=== PATIENT | male | born 1970 | race Caucasian/White ===

== ENCOUNTER 2022-11-24 08:12 | Outpatient (CLI) | payer OTHER, SELFPAY | END 2022-11-24 08:13 | disposition home or self-care (01) | LOC: NFLDREF 11-25 07:03 | PROVIDERS: PCP Family Medicine; Referring Provider Family Medicine; Visit Provider Family Medicine | DX: Z00.00 Encounter for general adult medical examination without abnormal findings (principal); E78.5 Hyperlipidemia, unspecified; I10 Essential (primary) hypertension; Z12.5 Encounter for screening for malignant neoplasm of prostate | CPT/HCPCS: 80053; 80061; 84153 ==

== ENCOUNTER 2023-11-16 11:31 | Outpatient (CLI) | payer OTHER, SELFPAY | END 2023-11-16 11:32 | disposition home or self-care (01) | LOC: LKVREF 11:32 | PROVIDERS: PCP Family Medicine; Visit Provider Family Medicine | DX: Z01.818 Encounter for other preprocedural examination (principal) | CPT/HCPCS: 80053; 80061; 82607; 83036; 84443; G0103 ==

== ENCOUNTER 2024-12-01 08:04 | Outpatient (CLI) | payer OTHER, SELFPAY | END 2024-12-01 08:05 | disposition home or self-care (01) | PROVIDERS: PCP Family Medicine; Visit Provider Family Medicine | DX: I10 Essential (primary) hypertension (principal); E78.5 Hyperlipidemia, unspecified | CPT/HCPCS: 80053; 80061; G0103 ==